=== PATIENT | male | born 1950 | race Caucasian/White ===

== ENCOUNTER → 2016-03-01 | Outpatient (CLI) | payer BC ==
[~2016-03-01] MED LIST: ACET-1256 PO; ACET0.054 PO; ASCO250T4; ASPI81TA28 PO; BENZ100C84 PO; BISA-16 PO; CALC500C70 PO; CHONCAP PO; CLR10 PO; CMD/25 PO; CYAN1SUB SC; DIPH25CA65 PO; DOCU-94 PO; DOXY100C76 PO; ENOX80IN SQ; FENT75DI2 TOP; FERR1TAB13 PO; FERR28TA2; FLUT0.15; FLUT0.15 NAE; FOLI1TAB7 PO; GADAVIST IV PRN; GLUC10007 PO; GUAISYP4 PO; LEVO1TAB33 PO; LISI-729 PO; LISI10TA PO; NAPR1TAB9 PO; NIVO4INJ IV; NMN10 PO; ONDA8TAB6 PO; OXYC-57 PO; OXYC1TAB3 PO; PANT40TA PO; PHYT100T; PRED10TA PO; PRENTAB26 PO; Prochlorperazine PO; WARF5TAB7 PO; XGVI IV; [UNRECOGNIZED DRUG - CODE] PO; zinc PO
--- NOTE | 2016-03-01 11:20 | DIAGNOSTIC IMAGING REPORT ---
MRI OF THE BRAIN WITHOUT AND WITH IV CONTRAST CLINICAL HISTORY: LUNG CA W/METS TO BRAIN AND BONE COMPARISON STUDY: 11/17/2015 TECHNIQUE: MRI of the brain was performed from the vertex to the skull base utilizing various T1 and T2 weighted sequences. Following the IV administration of 8 mL of Gadavist contrast, additional enhanced images were obtained. FINDINGS: Sagittal T1, axial diffusion, proton density and T2 weighted axial, coronal FLAIR, and pre and post axial T1-weighted images were acquired. These were supplemented with post gadolinium coronal T1 weighted images. The patient was imaged in a 0.7 Rosemarie open MRI magnet. There are postsurgical changes of a right parietal craniotomy. There is subjacent encephalomalacia. There is mild edema within the subjacent brain. There is no pathologic enhancement to indicate recurrent neoplasm. Axial diffusion-weighted images reveal no evidence of acute or subacute infarction. There is no evidence of ventricular dilatation. Proton density T2-weighted and FLAIR images reveal scattered foci of increased T2 signal within the white matter, likely on a small vessel basis. There is also right parietal edema subjacent to the craniotomy site. There are no abnormal flow voids. There is a nonspecific 7 mm focus of enhancement within the right cerebellar hemisphere. There is mild surrounding edema best visualized on the FLAIR sequence. A new metastatic deposit is the diagnosis of exclusion. IMPRESSION: 1. Postsurgical changes of a prior right parietal craniotomy. 2. New 7 mm focus of enhancement and surrounding edema in the right cerebellar hemisphere. A new metastatic deposit is the diagnosis of exclusion. Electronically signed by: Terrell Grey M.D. 03/01/2016 11:18 AM Dictated Date/Time: 03/01/2016 11:12 AM
== END | disposition home or self-care (01) ==
LOC: C.OPENMRI 09:50
PROVIDERS: ATTEND Radiology Radiation Oncology
DX: C34.90 Malignant neoplasm of unspecified part of unspecified bronchus or lung (principal)

== ENCOUNTER 2016-06-09 11:36 | Emergency (ER) | payer BC ==
[~2016-06-09] VITALS: Ht 170.2 cm; Wt 79.9 kg
[~2016-06-09 11:36] MED LIST changes: -ACET-1256 PO; -ACET0.054 PO; -ASCO250T4; -ASPI81TA28 PO; -BENZ100C84 PO; -CALC500C70 PO; -CLR10 PO; -CMD/25 PO; -CYAN1SUB SC; -DIPH25CA65 PO; -DOXY100C76 PO; -ENOX80IN SQ; -FERR1TAB13 PO; -FERR28TA2; -FLUT0.15; -FLUT0.15 NAE; -FOLI1TAB7 PO; -GUAISYP4 PO; -LEVO1TAB33 PO; -NIVO4INJ IV; -NMN10 PO; -OPTIRAY 320 IV PRN; -OXYC1TAB3 PO; -PHYT100T; -PRED10TA PO; -PRENTAB26 PO; -WARF5TAB7 PO; -XGVI IV; -[UNRECOGNIZED DRUG - CODE] PO
[2016-06-09 11:43] VITALS: TEMP 36.6; Ht 170.2 cm; Wt 79.9 kg
[2016-06-09 12:07] VITALS: O2SAT 98
--- NOTE | 2016-06-09 12:24 | EMERGENCY ROOM VISIT NOTE ---
History Report prepared by Kaitlin: Nichol Azul Under the Supervision of: Dr. Jesus Cabral M.D. First contact with patient: 12:13 Chief Complaint: RESPIRATORY PROBLEMS Stated Complaint: DX W/BLOOD CLOT IN LUNG Nursing Triage Summary: pt. has had recent right hip replacement, 05/18/16, brain CA 05/22/15 tumor removal, Chemo and radiation followed surgery, avastan every 3 weeks History of Present Illness The patient is a 65 year old male who presents to the Emergency Room with complaints of abnormal diagnostic testing that was done today prior to arrival. The patient notes that he has a history of lung cancer with metastases to the brain and bone. He notes that he had brain surgery and additionally had his bone repaired in his acetabulum repaired in April. The patient states that he had a routine CT scan today that revealed a blood clot. He additionally notes that he had blood work done as well. The patient states that his last chemotherapy treatment was in July 2015. He denies any fever or pain or swelling to his legs. Source of History: patient, spouse/significant other Onset: prior to arrival Position: other (global) Quality: other (abnormal diagnositic testing) Associated Symptoms: No fevers Review of Systems See HPI for pertinent positives & negatives. A total of 10 systems reviewed and were otherwise negative. Past Medical & Surgical Medical Problems: (1) Intracranial mass (2) Primary cancer of left upper lobe of lung Old medical records were reviewed. Nurse's notes were reviewed and I agree with. Family History FH: lung disease FHx: cancer Social History Smoking Status: Former Smoker Drug Use: none Marital Status: Housing Status: lives with family Occupation Status: retired Current/Historical Medications Scheduled Aspirin (Aspirin Ec), 81 MG PO DAILY Chondroitin Sulfate-Vitamin C- (Chondroitin Sulfate), 1,103 MG PO DAILY Diphenhydramine Hcl (Benadryl Allergy), 1 CAP PO HS Enoxaparin (Lovenox), 80 MG SQ Q12H Ferrous Sulfate (Kp Ferrous Sulfate), 1 TAB PO DAILY Glucosamine Sulfate (Glucosamine), 1,500 MG PO DAILY Lisinopril (Prinivil), 10 MG PO DAILY Pantoprazole (Protonix), 40 MG PO QPM Scheduled PRN Naproxen (Aleve), 220 MG PO Q12 PRN for Pain [zinc], 50 MG PO DAILY PRN for Nasal Congestion Miscellaneous Medications Acetaminophen (Tylenol), 80 MG PO Fluticasone Propionate (Nasal) (Flonase Allergy Relief) Allergies Coded Allergies: Penicillins (Verified Allergy, Mild, red flushed face, 06/09/16) Atorvastatin (Verified Adverse Reaction, Intermediate, joint pain, 06/09/16 ) Physical Exam Vital Signs Date Time Temp Pulse Resp B/P Pulse Ox O2 Delivery O2 Flow Rate FiO2 06/09/16 16:05 100 18 123/65 97 06/09/16 15:35 111 18 122/69 96 06/09/16 13:04 96 12 122/69 Room Air 06/09/16 12:27 101 06/09/16 12:07 99 Room Air 06/09/16 12:07 98 Room Air 06/09/16 11:43 36.6 98 20 126/76 98 Room Air Physical Exam General: Well developed well nourished, non-ill appearing middle aged male, in no acute distress, breathing comfortably on room air. Normal speech HEENT: Normal cephalic atraumatic. Pupils are equal round and reactive to light. Extraocular movements are intact. Sclerae anicteric. Oropharynx is pink with moist mucous membranes. No swelling of the mouth lips or tongue. Neck: Supple with a midline trachea. No meningeal signs or stiffness, no JVD or bruits. No Stridor. Chest wall: A port in left chest. Chest: Clear to auscultation bilaterally. No wheezes or rhonchi. No increased work of breathing. Heart: regular rate and rhythm. Abdomen: Soft nontender, nondistended without rebound guarding or rigidity. Extremities: No cyanosis clubbing or edema. No calf tenderness or assymetry Spine/Back. Non tender to palpation. No CVA tenderness Skin: Good turgor without rashes. Neurologic exam: Cranial nerves two through 12 are intact. Motor and sensation are intact and symmetrical throughout. Medical Decision & Procedures Laboratory Results 06/09/16 12:55 Red Blood Count 3.59, Mean Corpuscular Volume 91.9, Mean Corpuscular Hemoglobin 28.7, Mean Corpuscular Hemoglobin Concent 31.2, Mean Platelet Volume 7.9, Neutrophils (%) (Auto) 79.4, Lymphocytes (%) (Auto) 13.4, Monocytes (%) (Auto) 6.5, Eosinophils (%) (Auto) 0.4, Basophils (%) (Auto) 0.2, Neutrophils # (Auto) 7.97, Lymphocytes # (Auto) 1.35, Monocytes # (Auto) 0.65, Eosinophils # (Auto) 0.04, Basophils # (Auto) 0.02 06/09/16 12:55 Test 06/09/16 12:55 White Blood Count 10.04 K/uL (4.8-10.8) Red Blood Count 3.59 M/uL (4.7-6.1) Hemoglobin 10.3 g/dL (14.0-18.0) Hematocrit 33.0 % (42-52) Mean Corpuscular Volume 91.9 fL (80-100) Mean Corpuscular Hemoglobin 28.7 pg (25-34) Mean Corpuscular Hemoglobin Concent 31.2 g/dl (32-36) Platelet Count 385 K/uL (130-400) Mean Platelet Volume 7.9 fL (7.4-10.4) Neutrophils (%) (Auto) 79.4 % Lymphocytes (%) (Auto) 13.4 % Monocytes (%) (Auto) 6.5 % Eosinophils (%) (Auto) 0.4 % Basophils (%) (Auto) 0.2 % Neutrophils # (Auto) 7.97 K/uL (1.4-6.5) Lymphocytes # (Auto) 1.35 K/uL (1.2-3.4) Monocytes # (Auto) 0.65 K/uL (0.11-0.59) Eosinophils # (Auto) 0.04 K/uL (0-0.5) Basophils # (Auto) 0.02 K/uL (0-0.2) RDW Standard Deviation 52.4 fL (36.4-46.3) RDW Coefficient of Variation 15.6 % (11.5-14.5) Immature Granulocyte % (Auto) 0.1 % Immature Granulocyte # (Auto) 0.01 K/uL (0.00-0.02) Prothrombin Time 10.9 SECONDS (9.0-12.0) Prothromb Time International Ratio 1.0 (0.9-1.1) Activated Partial Thromboplast Time 33.6 SECONDS (21.0-31.0) Partial Thromboplastin Ratio 1.3 Anion Gap 7.0 mmol/L (3-11) Est Creatinine Clear Calc Drug Dose 126.9 ml/min Estimated GFR () 123.1 Estimated GFR (Non- 106.2 BUN/Creatinine Ratio 12.2 (10-20) Calcium Level 8.2 mg/dl (8.5-10.1) Total Bilirubin 0.3 mg/dl (0.2-1) Direct Bilirubin < 0.1 mg/dl (0-0.2) Aspartate Amino Transf (AST/SGOT) 14 U/L (15-37) Alanine Aminotransferase (ALT/SGPT) 25 U/L (12-78) Alkaline Phosphatase 79 U/L (45-117) Total Protein 6.7 gm/dl (6.4-8.2) Albumin 3.0 gm/dl (3.4-5.0) Lipase 325 U/L (73-393) Laboratory studies as stated above per my review. Medications Administered Medications (Trade) Dose Ordered Sig/Suzy Route Start Time Stop Time Status Last Admin Dose Admin Enoxaparin Sodium (Lovenox Inj) 80 mg NOW ONCE SQ 06/09/16 14:45 06/09/16 14:58 DC 06/09/16 15:57 80 MG Heparin Sodium (Porcine) (Heparin 100 Unit/ml 5ml Flush) 5 ml STK-MED ONCE .ROUTE 06/09/16 16:06 06/09/16 16:07 DC 06/09/16 16:00 5 ML ECG Indication: other (abnormal diagnositc testing) Rate (beats per minute): 92 Rhythm: normal sinus Findings: no acute ischemic change, no ectopy Comparison ECG Date: 05/21/15 Change: no significant change ED Course 1215: Past medical records reviewed. The patient was evaluated in room C2B, and a complete history and physical examination were performed. 1304: I discussed the patients case with Dr. Ray, Oncology. He feels that the patient should be evaluated for further treatment and started on Heparin. 1355: I discussed the patients case with SHANNON Dailey. He will evaluate the patient for further treatment. 1425: I discussed the patients case with SHANNON Dailey. He states that he spoke with Dr. Ray, oncology and they feel that the patient will be stable for discharge. 1445: Ordered Lovenox Inj 80 mg SQ. 1450: Ordered Lovenox 1 mg/Kg 1 ea SQ. 1454: I reevaluated the patient and he is resting comfortably. I discussed the treatment plan with him and he verbalized complete understanding and agreement. He is ready to go home. Medical Decision Differentials include, but are not limited to; PE, cancer related complication, infection, electrolyte or metabolic abnormality. This patient comes in as described above. He was sent over by his oncologist after having a CAT scan which showed a PE as an incidental finding. He was having a routine CAT scan for his cancer. He has no chest pain or shortness of breath. The CAT scan showed a right lower lobe PE, he also has progression of his cancer. He is asymptomatic and has no pain in his legs. His port was accessed and multiple blood testing was obtained. I did discuss with Dr. Casiano, who had recommended heparin. I then consulted Dr. Clements to see the patient for admission. Dr. Clements called and talked to Dr. Casiano they agreed that we will wanted to start him on Lovenox as an outpatient. The patient was happy with this as was his provider. He is given the first dose of Lovenox here and a prescription for Lovenox 80 mg twice a day he was set up to be seen by the anticoagulation clinic on Tuesday. He is to return if: Any problems given the medications, shortness of breath, fever or chills, any problems concerns. Patient and his were happy with plan and he was discharged to home. Consults Time Called: 1300 Consulting Physician: Dr. Ray, Oncology Returned Call: 1304 I discussed the patients case with Dr. Ray, Oncology. He feels that the patient should be evaluated for further treatment and started on Heparin. Additional Consults: Time Called: 1353 Consulted Physician: SHANNON Dailey Returned Call: [phone] Additional Comments: I discussed the patients case with SHANNON Dailey. He will evaluate the patient for further treatment. Impression Primary Impression: Pulmonary embolism Additional Impression: Lung cancer Scribe Attestation The scribe's documentation has been prepared under my direction and personally reviewed by me in its entirety. I confirm that the note above accurately reflects all work, treatment, procedures, and medical decision making performed by me. Departure Information Dispostion Home / Self-Care Prescriptions Enoxaparin (Lovenox) 80 Mg/0.8 Ml Inj 80 MG SQ Q12H for 30 Days, #60 SYR Prov: Jesus Cabral M.D. 06/09/16 Referrals Lars Dawkins MD (PCP) Forms HOME CARE DOCUMENTATION FORM, IMPORTANT VISIT INFORMATION, WORK / SCHOOL INSTRUCTIONS Patient Instructions My [facility] [employer] Additional Instructions Rest. Drink plenty of fluids. Follow-up with the coag clinic doctor Jaswinder this week Use Lovenox 80 mg twice a day for 30 days Return if: Worsening of symptoms, shortness of breath, any new problems or concerns Problem Qualifiers
[2016-06-09 13:28] LABS: BASO % 0.2 %; BASO ABS # 0.02 K/uL (0-0.2); COMPLETE YES; EOS % 0.4 %; IG% 0.1 %; LYMPH % 13.4 %; LYMPH ABS # 1.35 K/uL (1.2-3.4); MEAN CELL VOLUME 91.9 fL (80-100); MEAN CORPUSCULAR HEMOGLOBIN 28.7 pg (25-34); MEAN CORPUSCULAR HGB CONC 31.2 g/dl (32-36); MEAN PLATELET VOLUME 7.9 fL (7.4-10.4); MONO % 6.5 %; NEUT % 79.4 %; PLATELET COUNT 385 K/uL (130-400); RED BLOOD COUNT 3.59 M/uL (4.7-6.1); WHITE BLOOD COUNT 10.04 K/uL (4.8-10.8)
[2016-06-09] MEDS ORDERED: FLUT0.15 (13:28)
[2016-06-09] MEDS ORDERED: DIPH25CA65 PO (13:28)
[2016-06-09] MEDS ORDERED: ACET0.054 PO (13:28)
[2016-06-09] MEDS ORDERED: ASPI81TA28 PO (13:28)
[2016-06-09] MEDS ORDERED: FERR1TAB13 PO (13:28)
[2016-06-09 13:54] LABS: PARTIAL THROMBOPLASTIN RATIO 1.3; PROTHROMBIN TIME (PATIENT) 10.9 SECONDS (9.0-12.0)
[2016-06-09 14:03] LABS: BLOOD UREA NITROGEN 7 mg/dl (7-18); BUN/CREATININE RATIO 12.2 (10-20); CALCIUM 8.2 mg/dl (8.5-10.1); CARBON DIOXIDE 25 mmol/L (21-32); CHLORIDE 107 mmol/L (98-107); CREATININE 0.58 mg/dl (0.60-1.40); GLUCOSE 101 mg/dl (70-99); POTASSIUM 3.6 mmol/L (3.5-5.1); SODIUM 139 mmol/L (136-145)
[2016-06-09 14:06] LABS: ALKALINE PHOSPHATASE 79 U/L (45-117); ALT/SGPT 25 U/L (12-78); AST/SGOT 14 U/L (15-37)
[2016-06-09] MEDS ORDERED: HEPARIN 25,000 UNIT/500ML D5W 500 ML IV PRN (14:30)
[2016-06-09] MEDS ORDERED: HEPARIN IV BOLUS 6,000 UNIT in SYRINGE 0 ML IV ONE (14:45)
[2016-06-09] MEDS ORDERED: ENOXAPARIN 80 MG/0.8 ML SYR SQ ONE (14:45)
[2016-06-09] MEDS ORDERED: ENOXAPARIN 1 MG/KG SQ STA (14:50)
[2016-06-09] MEDS ORDERED: ENOX80IN SQ (14:54)
--- NOTE | 2016-06-09 15:25 | Medical Consult ---
Consultation Date of Consultation: Jun 09, 2016. Attending Physician: Dr. Cabral Reason for Consultation: Pulmonary embolism History of Present Illness 65 yo male with history of metastatic lung cancer with locally advanced disease as well as a history of brain mets and mets to the right acetabulum. He had a routine follow up CT chest done this morning and then he and his went shopping. He has been feeling well, no shortness of breath, no chest pain, no weight loss, no fatigue. He has been recovering from right hip replacement 3 weeks ago and has been doing quite well. No pain or swelling in either of his legs, denies calf pain. The CT chest showed progression of the left lung mass but also incidentally showed a right lower lobe segmental pulmonary embolus. He was called by oncology and told to come to the ED for evaluation. In the ED he was not hypoxic and blood pressure was preserved. He was slightly tachycardic with HR 100-110's while at rest. 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, s/p craniotomy for diagnosis and then radiation mets to right acetabulum, s/p removal of mets and total hip arthroplasty three weeks ago HTN GERD Seasonal allergies Family History FH: lung disease FHx: cancer Social History Smoking Status: Former Smoker Drug Use: none Marital Status: Housing Status: lives with family Occupation Status: retired Allergies Coded Allergies: Penicillins (Verified Allergy, Mild, red flushed face, 06/09/16) Atorvastatin (Verified Adverse Reaction, Intermediate, joint pain, 06/09/16 ) Home Medications Aspirin 81mg daily Protonix 40mg daily Lisinopril 20mg daily Benadryl PRN allergies Current Inpatient Medications Current Inpatient Medications Medications (Trade) Dose Ordered Sig/Suzy Route Start Time Stop Time Status Last Admin Dose Admin Heparin Sodium/ Dextrose (Heparin 25,000 Unit/500ml D5W) 500 ml @ 26 mls/hr [id number] PRN IV 06/09/16 14:30 07/09/16 14:29 Review of Systems Constitutional: No chills, No fatigue, No fever, No problem reported, No sweats , No weakness, No weight loss Eyes: No diplopia, No discharge, No eye pain, No problem reported, No redness, No worsening of vision ENT: No dental problems, No hearing loss, No nasal symptoms, No problem reported, No sore throat, No tinnitus, No trouble swallowing, No unusual epistaxis Respiratory: No cough, No dyspnea at rest, No dyspnea on exertion, No hemoptysis, No problem reported, No shortness of breath, No sputum, No wheezing Cardiovascular: No PND, No chest pain, No claudication, No edema, No orthopnea , No palpitations, No problem reported Abdomen: No GI bleeding, No constipation, No diarrhea, No nausea, No pain, No problem reported, No vomiting Musculoskeletal: No calf pain, No joint pain, No muscle pain, No problem reported, No swelling Genitourinary - Male: No dysuria, No hematuria, No urinary frequency, No urinary urgency Neurologic: No balance problems, No memory loss, No numbness/tingling, No paralysis, No problem reported, No vertigo, No weakness Psychiatric: No anhedonism, No anxiety, No depression symptoms, No insomnia, No problem reported, No substance abuse Endocrine: No excessive thirst, No excessive urination, No fatigue, No problem reported Hematologic / Lymphatic: No abnormal bleeding/bruising, No clotting problems, No night sweats, No problem reported, No swollen lymph nodes Integumentary: No bleeding, No color change, No itch, No new/changing skin lesions, No problem reported, No rash Allergic / Immunologic: No environmental allergies, No food allergies, No frequent infections, No hives, No pet sensitivities, No poor healing, No problem reported, No prolonged convalescence, No seasonal allergies Physical Exam Date Time Temp Pulse Resp B/P Pulse Ox O2 Delivery O2 Flow Rate FiO2 06/09/16 13:04 96 12 122/69 Room Air 06/09/16 12:27 101 06/09/16 12:07 99 Room Air 06/09/16 12:07 98 Room Air 06/09/16 11:43 36.6 98 20 126/76 98 Room Air General Appearance: WD/WN, no apparent distress Head: normocephalic, atraumatic Eyes: normal inspection, PERRL, EOMI, sclerae normal ENT: hearing grossly normal, pharynx normal, + nasal congestion, + nasal drainage Neck: supple, no adenopathy, no JVD Respiratory/Chest: chest non-tender, lungs clear, normal breath sounds, no respiratory distress, no accessory muscle use Cardiovascular: regular rate, rhythm, no edema, no gallop, no JVD, no murmur, normal peripheral pulses Abdomen/GI: normal bowel sounds, non tender, soft, no organomegaly Back: normal inspection, no CVA tenderness, no muscle spasm, normal range of motion Extremities/Musculoskelatal: normal inspection, no calf tenderness, normal capillary refill, no pedal edema, normal range of motion, pelvis stable Neurologic/Psych: sight mounter II-XII nml as tested, no motor/sensory deficits, alert, normal mood/affect, normal reflexes, oriented x 3 Skin: normal color, warm/dry, no rash Lymphatic: no adenopathy Laboratory Results CHEST CT WITH CONTRAST CT DOSE: 406.13 mGycm HISTORY: Lung cancer. Follow-up. TECHNIQUE: Multiaxial CT images of the chest were performed following the intravenous administration of contrast. COMPARISON: Chest CT 12/30/2015. FINDINGS: Significant increase in size in the 7.1 x 5.5 cm lobular lingular mass. This previously measured 4.5 x 2.3 cm. This results in high-grade stenosis of the lingular bronchus. This partially encases the left superior pulmonary vein with severe stenosis of its branches. There is mild narrowing of the lingular pulmonary artery due to the mass. Right lower lobe segmental pulmonary embolus. No pleural or pericardial effusions. AP window and prevascular lymph nodes have increased in size consistent with metastatic disease. Dominant AP window lymph node measures 13 mm. There are a few new lesions within the liver with the largest in the right hepatic lobe measuring 3.8 cm. These are consistent with metastatic disease. Bilateral adrenal gland nodules are again noted. No suspicious lytic or blastic osseous lesions. Left Port-A-Cath. This terminates in the distal SVC. Minimal emphysema. No pneumothorax. Stable 9 mm groundglass nodule within the right upper lobe on image 80. However, there is been interval development of multiple bilateral pulmonary nodules consistent with metastatic disease. There are at least 10 pulmonary nodules identified. Dominant nodule seen within the lingula measures 12 mm. IMPRESSION: 1. Significant increase in size in the lobular 7.1 x 5.5 cm lingular mass. 2. Interval development of multiple pulmonary metastatic nodules and hepatic metastatic disease as described above. 3. Mildly enlarged AP window and prevascular lymph nodes consistent with metastatic disease. 4. Right lower lobe segmental pulmonary embolus. 5. These findings were called/faxed to the patient's referring physician. Last 24 Hours Test 06/09/16 12:55 White Blood Count 10.04 K/uL Red Blood Count 3.59 M/uL Hemoglobin 10.3 g/dL Hematocrit 33.0 % Mean Corpuscular Volume 91.9 fL Mean Corpuscular Hemoglobin 28.7 pg Mean Corpuscular Hemoglobin Concent 31.2 g/dl Platelet Count 385 K/uL Mean Platelet Volume 7.9 fL Neutrophils (%) (Auto) 79.4 % Lymphocytes (%) (Auto) 13.4 % Monocytes (%) (Auto) 6.5 % Eosinophils (%) (Auto) 0.4 % Basophils (%) (Auto) 0.2 % Neutrophils # (Auto) 7.97 K/uL Lymphocytes # (Auto) 1.35 K/uL Monocytes # (Auto) 0.65 K/uL Eosinophils # (Auto) 0.04 K/uL Basophils # (Auto) 0.02 K/uL RDW Standard Deviation 52.4 fL RDW Coefficient of Variation 15.6 % Immature Granulocyte % (Auto) 0.1 % Immature Granulocyte # (Auto) 0.01 K/uL Prothrombin Time 10.9 SECONDS Prothromb Time International Ratio 1.0 Activated Partial Thromboplast Time 33.6 SECONDS Partial Thromboplastin Ratio 1.3 Sodium Level 139 mmol/L Potassium Level 3.6 mmol/L Chloride Level 107 mmol/L Carbon Dioxide Level 25 mmol/L Anion Gap 7.0 mmol/L Blood Urea Nitrogen 7 mg/dl Creatinine 0.58 mg/dl Est Creatinine Clear Calc Drug Dose 126.9 ml/min Estimated GFR () 123.1 Estimated GFR (Non- 106.2 BUN/Creatinine Ratio 12.2 Random Glucose 101 mg/dl Calcium Level 8.2 mg/dl Total Bilirubin 0.3 mg/dl Direct Bilirubin < 0.1 mg/dl Aspartate Amino Transf (AST/SGOT) 14 U/L Alanine Aminotransferase (ALT/SGPT) 25 U/L Alkaline Phosphatase 79 U/L Total Protein 6.7 gm/dl Albumin 3.0 gm/dl Lipase 325 U/L Assessment & Plan 65 yo male with metastatic adenocarcinoma of left lung, here with incidental finding of right lower lobe pulmonary embolism seen on follow up CT chest - Pulmonary embolism: right lower lobe, slightly tachycardic but BP preserved and no hypoxia no chest pain, denies any dyspnea recommend Lovenox 80mg q12, will give a dose in the ED discussed plan with Dr. Oquendo, he is in agreement referred to Dr. San with coagulation clinic, appointment on Wednesday 06/14 - Metastatic adenocarcinoma: discussed results of CT, patient aware that left lung mass getting larger has follow up with Dr. Oquendo and will discuss plan of treatment - Seasonal allergies: worse this year, recommended Zyrtec due to non-drowsy and steroid nasal spray follow up with PCP Additional Copies To Alessandro Oquendo D.O.; Sofi San M.D., PHD; Joel Robin M.D.
[2016-06-09 16:05] VITALS: BP 123/65; PULSE 100; O2SAT 97
[2016-06-17] MEDS ORDERED: FERR28TA2 (13:06)
[2016-06-17] MEDS ORDERED: FOLI1TAB7 PO (13:06)
[2016-06-17] MEDS ORDERED: ASCO250T4 (13:06)
[2016-06-17] MEDS ORDERED: PRENTAB26 PO (13:06)
[2016-06-17] MEDS ORDERED: WARF5TAB7 PO (13:06)
[2016-06-21] MEDS ORDERED: PANT40TA PO (13:35)
[2016-06-21] MEDS ORDERED: FLUT0.15 NAE (15:15)
[2016-06-21] MEDS ORDERED: ACET-1256 PO (15:15)
[2016-06-24] MEDS ORDERED: DOXY100C76 PO (09:07)
[2016-06-29] MEDS ORDERED: NMN10 PO (16:28)
[2016-07-01] MEDS ORDERED: WARF5TAB7 PO (11:17)
[2016-07-01] MEDS ORDERED: BENZ100C84 PO (11:18)
[2016-07-05] MEDS ORDERED: CLR10 PO (15:49)
[2016-07-08] MEDS ORDERED: GUAISYP4 PO (15:52)
[2016-07-22] MEDS ORDERED: XGVI IV (12:39)
[2016-07-22] MEDS ORDERED: NIVO4INJ IV (12:39)
[2016-07-22] MEDS ORDERED: CALC500C70 PO (12:39)
[2016-07-29] MEDS ORDERED: CMD/25 PO (13:37)
[2016-08-19] MEDS ORDERED: NAPR1TAB9 PO (13:29)
[2016-08-26] MEDS ORDERED: WARF5TAB7 PO (11:40)
[2016-09-10] MEDS ORDERED: LEVO1TAB33 PO (11:41)
[2016-09-10] MEDS ORDERED: PRED10TA PO (11:41)
[2016-10-04] MEDS ORDERED: CYAN1SUB SC (12:13)
[2016-10-05] MEDS ORDERED: OXYC1TAB3 PO (08:40)
[2016-10-05] MEDS ORDERED: [UNRECOGNIZED DRUG - CODE] PO (16:37)
[2016-10-07] MEDS ORDERED: PHYT100T (11:59)
== END 2016-06-09 16:09 | disposition home or self-care (01) ==
LOC: C.EDC 12:36
DX: I26.99 Other pulmonary embolism without acute cor pulmonale (principal); C34.12 Malignant neoplasm of upper lobe, left bronchus or lung; Z87.891 Personal history of nicotine dependence; Z79.82 Long term (current) use of aspirin; Z79.899 Other long term (current) drug therapy; Z88.0 Allergy status to penicillin; Z88.8 Allergy status to other drugs, medicaments and biological substances; Z80.9 Family history of malignant neoplasm, unspecified; C78.00 Secondary malignant neoplasm of unspecified lung; C78.7 Secondary malignant neoplasm of liver and intrahepatic bile duct

== ENCOUNTER → 2016-06-09 | Outpatient (CLI) | payer BC ==
[~2016-06-09] MED LIST changes: -BISA-16 PO; -GADAVIST IV PRN; -LISI-729 PO; +OPTIRAY 320 IV PRN
--- NOTE | 2016-06-09 10:28 | DIAGNOSTIC IMAGING REPORT ---
CHEST CT WITH CONTRAST CT DOSE: 406.13 mGycm HISTORY: Lung cancer. Follow-up. TECHNIQUE: Multiaxial CT images of the chest were performed following the intravenous administration of contrast. COMPARISON: Chest CT 12/30/2015. FINDINGS: Significant increase in size in the 7.1 x 5.5 cm lobular lingular mass. This previously measured 4.5 x 2.3 cm. This results in high-grade stenosis of the lingular bronchus. This partially encases the left superior pulmonary vein with severe stenosis of its branches. There is mild narrowing of the lingular pulmonary artery due to the mass. Right lower lobe segmental pulmonary embolus. No pleural or pericardial effusions. AP window and prevascular lymph nodes have increased in size consistent with metastatic disease. Dominant AP window lymph node measures 13 mm. There are a few new lesions within the liver with the largest in the right hepatic lobe measuring 3.8 cm. These are consistent with metastatic disease. Bilateral adrenal gland nodules are again noted. No suspicious lytic or blastic osseous lesions. Left Port-A-Cath. This terminates in the distal SVC. Minimal emphysema. No pneumothorax. Stable 9 mm groundglass nodule within the right upper lobe on image 80. However, there is been interval development of multiple bilateral pulmonary nodules consistent with metastatic disease. There are at least 10 pulmonary nodules identified. Dominant nodule seen within the lingula measures 12 mm. IMPRESSION: 1. Significant increase in size in the lobular 7.1 x 5.5 cm lingular mass. 2. Interval development of multiple pulmonary metastatic nodules and hepatic metastatic disease as described above. 3. Mildly enlarged AP window and prevascular lymph nodes consistent with metastatic disease. 4. Right lower lobe segmental pulmonary embolus. 5. These findings were called/faxed to the patient's referring physician. Electronically signed by: Sina Ruiz M.D. 06/09/2016 10:26 AM Dictated Date/Time: 06/09/2016 10:14 AM
== END | disposition home or self-care (01) ==
LOC: C.CTS 09:15
PROVIDERS: ATTEND Internal Medicine Hematology & Oncology
DX: C34.12 Malignant neoplasm of upper lobe, left bronchus or lung (principal); C78.00 Secondary malignant neoplasm of unspecified lung; C78.7 Secondary malignant neoplasm of liver and intrahepatic bile duct; I26.99 Other pulmonary embolism without acute cor pulmonale

== ENCOUNTER → 2016-06-16 | Outpatient (CLI) | payer BC ==
[~2016-06-16] MED LIST changes: +ACET-1256 PO; +ACET0.054 PO; +ASCO250T4; +BENZ100C84 PO; +CALC500C70 PO; -CHONCAP PO; +CLR10 PO; +CMD/25 PO; +CYAN1SUB SC; +DIPH25CA65 PO; -DOCU-94 PO; +DOXY100C76 PO; +ENOX80IN SQ; -FENT75DI2 TOP; +FERR1TAB13 PO; +FERR28TA2; +FLUT0.15; +FLUT0.15 NAE; +FOLI1TAB7 PO; +GADAVIST IV PRN; -GLUC10007 PO; +GUAISYP4 PO; +LEVO1TAB33 PO; +NIVO4INJ IV; +NMN10 PO; -ONDA8TAB6 PO; -OXYC-57 PO; +OXYC1TAB3 PO; +PHYT100T; +PRED10TA PO; +PRENTAB26 PO; -Prochlorperazine PO; +WARF5TAB7 PO; +XGVI IV; +[UNRECOGNIZED DRUG - CODE] PO
--- NOTE | 2016-06-16 12:22 | DIAGNOSTIC IMAGING REPORT ---
MRI OF THE BRAIN WITHOUT AND WITH IV CONTRAST CLINICAL HISTORY: Metastatic lung carcinoma. COMPARISON STUDY: 03/01/2016 TECHNIQUE: MRI of the brain was performed from the vertex to the skull base utilizing various T1 and T2 weighted sequences. Following the IV administration of 7.5 mL of Gadavist contrast, additional enhanced images were obtained. FINDINGS: Sagittal T1, axial diffusion, proton density and T2 weighted axial, coronal FLAIR, and pre and post axial T1-weighted images were acquired. These were supplemented with post gadolinium coronal T1 weighted images. The patient was imaged before and after administration of 7.5 cc of intravenous Gadavist. The patient was imaged under 0.7 Rosemarie open MRI scanner. There are postsurgical changes of a right parietal craniotomy. Axial diffusion-weighted images reveal no evidence of acute or subacute infarction. There is no evidence of ventricular dilatation. Proton density T2-weighted and FLAIR images reveal foci of edema subjacent to the craniotomy site, likely postsurgical. There are additional foci of white matter edema likely secondary to metastatic foci. There are no abnormal flow voids. Postcontrast images reveal a new 5 mm enhancing focus within the right temporal lobe. The previously identified focus of enhancement within the right cerebellar hemisphere appears smaller. There is a second enhancing lesion within the right temporal lobe measuring 9.5 mm. There is a 4 mm enhancing lesion within the right posterior temporal lobe. There is a new 5 mm enhancing nodule within the right basal ganglia. There is a new 9 mm enhancing lesion within the left frontal lobe. There is a new 4 mm enhancing lesion within the left centrum semiovale. IMPRESSION: Interval development of multiple enhancing parenchymal lesions, many of which demonstrate mild surrounding edema. Given the clinical history, the findings are viewed as most consistent with multifocal intracranial metastasis. Electronically signed by: Terrell Grey M.D. 06/16/2016 12:20 PM Dictated Date/Time: 06/16/2016 12:13 PM
== END | disposition home or self-care (01) ==
LOC: C.OPENMRI 10:40
PROVIDERS: ATTEND Physician Assistant Medical
DX: C34.12 Malignant neoplasm of upper lobe, left bronchus or lung (principal); C79.31 Secondary malignant neoplasm of brain; C79.51 Secondary malignant neoplasm of bone

== ENCOUNTER → 2016-08-19 | Outpatient (CLI) | payer BC ==
[~2016-08-19] MED LIST changes: -ACET0.054 PO; -BENZ100C84 PO; -CLR10 PO; -CMD/25 PO; -DOXY100C76 PO; -ENOX80IN SQ; -FERR1TAB13 PO; -FLUT0.15; -FLUT0.15 NAE; -GADAVIST IV PRN; -GUAISYP4 PO; -LISI10TA PO; -zinc PO
[2016-08-19 12:54] VITALS: BP 105/64; PULSE 104; TEMP 37.1; O2SAT 97
--- NOTE | 2016-08-19 15:55 | Radiation Oncology Follow-Up ---
Radiation Oncology Follow-Up Date of Visit Aug 19, 2016. (Shadia Allison PA-C) Reason For Visit One-month follow-up (Shadia Allison PA-C) Radiation Completion Date Right hip 06/25/15;Brain 07/09/15, 03/17/16, & 07/13/16. (Shadia Allison PA-C) Diagnosis (1) Primary cancer of left upper lobe of lung Status: Chronic Onset Date: 05/22/2015 Stage: IV Permanent Comment: STAGING: Metastatic lung cancer to the brain Left leg weakness then right upper extremity weakness Finding of a left upper lobe mass of the lung Finding of a right parietal mass of the brain Status post craniotomy with finding of metastatic adenocarcinoma lung primary Status post rehabilitation with excellent recovery of weakness Status post PET/CT revealing primary as well as right acetabular metastasis Status post completion of radiation therapy to the right hip 06/25/2015 received 2500 cGy Status post completion of radiation therapy to the brain 07/09/2015 received 3000 cGy in 5 fractions (SBRT) Maintenance Avastin New right cerebellar lesion seen on MRI 03/11/2016 Status post completion of radiation therapy to the right cerebellar with stereotactic treatment 03/17/2016 received 1800 cGy as a single fraction Avastin was held in order for him to undergo a right total hip replacement 05/18 Finding of multiple new brain metastasis 06/16/2016 Status post completion of whole brain radiation therapy 07/13/2016 he received 3750 cGy Last Edited By: Shadia Allison on Jul 28, 2016 10:14 (Shadia Allison PA-C) History of Present Illness Mr. Rehman is a 65-year-old gentleman who recently presented with left leg weakness which started several weeks ago. He did see his primary care physician , Dr. Burrell, who recommended imaging studies. He initially underwent a lumbar x-ray which was completed on 05/13/2015 which showed no evidence of pathology. In the interim, he started to develop left upper extremity weakness as well. He did have an MRI of the lumbar spine completed on 05/19/2015 which showed: "IMPRESSION: 1. Multilevel degenerative vertebral this changes with posterior disc herniations and multilevel multifactorial spinal stenosis. 2. Left lateral bulging disc L4-L5 with mild narrowing of the spinal canal. 3. Left central disc herniation L3-L4 with moderate impact left anterior thecal sac and narrowing left neural foramina 4. Broad-based disc herniation L2-L3." He then had an MRI of the brain which was completed on 05/21/2015 which showed "Intensely enhancing 16 mm mass within the right parietal vertex with extensive surrounding vasogenic edema." The patient then was admitted to [facility] for further workup and evaluation. Dr. Hurley from neurosurgery evaluated the patient. They did obtain a chest x-ray on 05/21/2015 which did show a left upper lobe mass as well. Based on his neurologic symptoms and no previous history of cancer, Dr. Hurley recommended a right partial craniotomy to relieve the mass effect and also obtain a pathologic diagnosis. He did undergo a partial craniotomy by Dr. Alessandro Hurley on 05/22/2015 and attempted to perform a gross total resection of the mass. The pathology is pending. In the interim, the patient did have a CT chest abdomen pelvis on 05/23/2015 which did reveal a left perihilar mass measuring up to 6 cm with anterior displacement of the left main pulmonary artery. There are also noted to be several left hilar lymph nodes measuring up to 2.2 cm. An additional nodular process involving the left upper lobe measured 8.[address] abdomen and pelvis showed: "1. A 6 cm partially visualized necrotic mass primarily within the left upper lobe with associated left hilar lymphadenopathy. This is better appreciated on the same day chest CT. 2. A 2.2 cm left adrenal gland nodule. This is technically indeterminate but suspicious for a metastatic lesion given the left lung mass. 3. Mild bladder wall thickening. This likely due to chronic outlet obstruction from the enlarged prostate gland." Dr. Jovel has seen this patient in consultation regarding medical oncology input. We are now seeing the patient in consultation discuss the role of radiation therapy. The patient underwent a craniotomy in 05/22/2015. This did reveal metastatic adenocarcinoma of the lung primary. Following his hospitalization he went to [facility] for rehabilitation. The left-sided weakness resolved without difficulty. He is on a tapered dose of Decadron. He underwent a PET/CT for staging 06/04/2015. This revealed the mass of the left upper lobe with extension to the hilum. There is also activity in the right acetabulum. He was been seen by medical oncology. Chemotherapy is scheduled for 07/03/2015. He is going to have a port placed by Dr. Whitmore. He does have pain in the right hip with ambulation. He rates this at a level IV. This can get down to level I with taking Tylenol. He is been doing stretching exercises. Patient went under sequential treatment. First therapy was given to the right hip. He was treated from 06/19/2015 to 06/26/2015. He received 2500 cGy. He then was given treatment to the brain. He was treated from 06/30/2015 to 2015. He received 3000 cGy in 5 fractions utilizing SBRT. In the interim, the patient has been receiving maintenance chemotherapy underneath the supervision of Dr. Alessandro Oquendo. He is been receiving Avastin every 3 weeks. He has had no complaints including any neurologic deficits or headaches. He did have a follow-up MRI of the brain on 03/01/2016 which did reveal: "IMPRESSION: 1. Postsurgical changes of a prior right parietal craniotomy. 2. New 7 mm focus of enhancement and surrounding edema in the right cerebellar hemisphere. A new metastatic deposit is the diagnosis of exclusion." We have asked the patient to come in for a follow-up evaluation discussed the role further radiation therapy due to his new metastatic disease in the brain. Treatment was given as a single fraction on 03/17/2016. He received 1800 cGy. 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 He underwent a total hip replacement 05/18/2016. The Avastin he had been on as a maintenance dose was stopped prior to the hip surgery. He has been doing well and denies any headaches. He's had no change in vision. There is no change of the strength of his arms or legs. He also had follow-up studies ordered through Dr. Oquendo's office. He stated there is progression in the chest. There are plans for him to restart chemotherapy. He has an appointment to be seen in medical oncology next Tuesday. More recently, we did have a repeat MRI of the brain which did reveal metastatic disease with at least 5 metastatic deposits. Given the extent of disease, we have recommended palliative whole brain radiation therapy in 15 treatments due to his previous treatment. We have also recommended consideration for namenda with treatment. I have already spoken with Dr. Alessandro Oquendo from medical oncology who will plan to restart the patient with systemic chemotherapy after completion of whole brain radiation therapy. Status post completion of whole brain radiation therapy 07/13/2016. He received 3750 cGy. (Shadia Allison PA-C) Interim History He continues to have the fatigue following treatment. He requires a nap twice a day. He is not having problems with headaches or dizziness. He has noticed decreased hearing since the end of treatment. He did have skin irritation especially of his years. The areas of dryness has steadily improved. He is following with the anticoagulation clinic in regards to the pulmonary embolism. He is now Opdivoo. This is given every 2 weeks. He is on Namenda to help with cognitive abilities. He does have loss of interest in usual activities. It had been recommended that he be on the medication for 6 months. His is going to check his prescription to see how long he is been on the medication. (Shadia Allison PA-C) Allergies Coded Allergies: Penicillins (Verified Allergy, Mild, red flushed face, 06/09/16) Atorvastatin (Verified Adverse Reaction, Intermediate, joint pain, 06/09/16 ) Home Medications Scheduled Ascorbic Acid (Vitamin C), DAILY Calcium/Vitamin D (Os-Shadi 500 Plus D), 1 TAB PO DAILY Denosumab (Xgeva), 1 DOSE IV UD Ferrous Sulfate (Iron), 65 MG DAILY Folic Acid (Folvite), 1 TAB PO DAILY Memantine (Namenda), 5 MG PO BID Multivit/Min/Iron/Fol Ac/Pren ( Vitamin), 1 TAB PO DAILY Nivolumab (Opdivo), Unknown Dose IV UD Warfarin Sod (Jantoven), 2.5 MG PO DAILY Scheduled PRN Acetaminophen (Tylenol), 1-2 TAB PO Q6 PRN for Pain Diphenhydramine Hcl (Benadryl Allergy), 1 CAP PO HS PRN for Sleep Naproxen (Aleve), 220 MG PO BID PRN for Pain Review of Systems Gastrointestinal: Symptoms: WNL Oral: Symptoms: No Problems Respiratory: Symptoms: Dry Cough, Moist Cough, Productive Cough Other Respiratory: Troubled with chronic cough that he's getting evaluated in August 2016 Urinary: Symptoms: Frequency Comments: Increasing with his age per pt Skin: Symptoms: No Problems Other Skin Symptoms: Forehead/ears/face with rush color; (Shadia Allison PA-C) Physical Exam Vital Signs Date Time Temp Pulse Resp B/P (MAP) Pulse Ox O2 Delivery O2 Flow Rate FiO2 08/19/16 12:54 37.1 104 20 105/64 97 Fatigue: None General Appearance: no apparent distress Eyes: normal inspection, EOMI ENT: normal ENT inspection, hearing grossly normal, TMs normal (small amount of dried cerumen in the auditory canal. There is no swelling or obstruction.) Neck: no adenopathy, thyroid normal Respiratory/Chest: no respiratory distress, no accessory muscle use, + decreased breath sounds Cardiovascular: regular rate, rhythm, no gallop, no murmur Abdomen: normal bowel sounds, soft Extremities: no pedal edema Neurologic/Psychiatric: no motor/sensory deficits, alert, normal mood/affect Skin: warm/dry, + pertinent finding (dryness of the skin and resolving hyperpigmentation of the scalp and ears.) (Shadia Allison PA-C) Laboratory Studies Test 06/09/16 12:55 06/23/16 15:40 08/03/16 13:17 08/12/16 11:45 Prothrombin Time 10.9 SECONDS (9.0-12.0) Prothrombin Time INR 1.0 (0.9-1.1) PTT 33.6 SECONDS (21.0-31.0) Partial Thromboplastin Ratio 1.3 Direct Bilirubin < 0.1 mg/dl (0-0.2) Lipase 325 U/L (73-393) Urine Color DK YELLOW Urine Appearance CLEAR (CLEAR) Urine pH 6.0 (4.5-7.5) Urine Specific [place] 1.024 (1.000-1.030) Urine Protein NEG (NEG) Urine Glucose (UA) NEG (NEG) Urine Ketones TRACE (NEG) Urine Occult Blood 2+ (NEG) Urine Nitrite NEG (NEG) Urine Bilirubin NEG (NEG) Urine Urobilinogen NEG (NEG) Urine Leukocyte Esterase NEG (NEG) Urine WBC (Auto) 1-5 /hpf (0-5) Urine RBC (Auto) 10-30 /hpf (0-4) Urine Hyaline Casts (Auto) 1-5 /lpf (0-5) Urine Epithelial Cells (Auto) 10-20 /lpf (0-5) Urine Bacteria (Auto) NEG (NEG) Lactate Dehydrogenase 230 U/L (87-241) White Blood Count 10.09 K/uL (4.8-10.8) Red Blood Count 4.07 M/uL (4.7-6.1) Hemoglobin 10.6 g/dL (14.0-18.0) Hematocrit 34.0 % (42-52) Mean Corpuscular Volume 83.5 fL (80-100) Mean Corpuscular Hemoglobin 26.0 pg (25-34) Mean Corpuscular Hemoglobin Concent 31.2 g/dl (32-36) Platelet Count 436 K/uL (130-400) Mean Platelet Volume 7.9 fL (7.4-10.4) Neutrophils (%) (Auto) 81.5 % Lymphocytes (%) (Auto) 11.2 % Monocytes (%) (Auto) 6.4 % Eosinophils (%) (Auto) 0.4 % Basophils (%) (Auto) 0.3 % Neutrophils # (Auto) 8.22 K/uL (1.4-6.5) Lymphocytes # (Auto) 1.13 K/uL (1.2-3.4) Monocytes # (Auto) 0.65 K/uL (0.11-0.59) Eosinophils # (Auto) 0.04 K/uL (0-0.5) Basophils # (Auto) 0.03 K/uL (0-0.2) RDW Standard Deviation 50.4 fL (36.4-46.3) RDW Coefficient of Variation 16.6 % (11.5-14.5) Immature Granulocyte % (Auto) 0.2 % Immature Granulocyte # (Auto) 0.02 K/uL (0.00-0.02) Sodium Level 134 mmol/L (136-145) Potassium Level 3.7 mmol/L (3.5-5.1) Chloride Level 98 mmol/L (98-107) Carbon Dioxide Level 24 mmol/L (21-32) Anion Gap 12.0 mmol/L (3-11) Blood Urea Nitrogen 10 mg/dl (7-18) Creatinine 0.71 mg/dl (0.60-1.40) Est Creatinine Clear Calc Drug Dose 111.8 ml/min Estimated GFR () 113.3 Estimated GFR (Non- 97.8 BUN/Creatinine Ratio 14.6 (10-20) Random Glucose 141 mg/dl (70-99) Calcium Level 8.6 mg/dl (8.5-10.1) Total Bilirubin 0.3 mg/dl (0.2-1) Aspartate Amino Transferase (AST) 28 U/L (15-37) Alanine Aminotransferase (ALT) 19 U/L (12-78) Alkaline Phosphatase 82 U/L (45-117) Total Protein 6.9 gm/dl (6.4-8.2) Albumin 2.7 gm/dl (3.4-5.0) Globulin 4.2 gm/dl (2.5-4.0) Albumin/Globulin Ratio 0.6 (0.9-2) Thyroid Stimulating Hormone (TSH) 0.601 uIu/ml (0.300-4.500) POC Prothrombin Time INR 2.2 (0.9-1.1) Test 08/17/16 14:05 08/19/16 14:15 White Blood Count 8.21 K/uL (4.8-10.8) Red Blood Count 4.32 M/uL (4.7-6.1) Hemoglobin 10.7 g/dL (14.0-18.0) Hematocrit 35.8 % (42-52) Mean Corpuscular Volume 82.9 fL (80-100) Mean Corpuscular Hemoglobin 24.8 pg (25-34) Mean Corpuscular Hemoglobin Concent 29.9 g/dl (32-36) Platelet Count 410 K/uL (130-400) Mean Platelet Volume 7.8 fL (7.4-10.4) Neutrophils (%) (Auto) 80.2 % Lymphocytes (%) (Auto) 10.1 % Monocytes (%) (Auto) 8.2 % Eosinophils (%) (Auto) 0.7 % Basophils (%) (Auto) 0.4 % Neutrophils # (Auto) 6.59 K/uL (1.4-6.5) Lymphocytes # (Auto) 0.83 K/uL (1.2-3.4) Monocytes # (Auto) 0.67 K/uL (0.11-0.59) Eosinophils # (Auto) 0.06 K/uL (0-0.5) Basophils # (Auto) 0.03 K/uL (0-0.2) RDW Standard Deviation 52.0 fL (36.4-46.3) RDW Coefficient of Variation 17.2 % (11.5-14.5) Immature Granulocyte % (Auto) 0.4 % Immature Granulocyte # (Auto) 0.03 K/uL (0.00-0.02) Sodium Level 134 mmol/L (136-145) Potassium Level 4.0 mmol/L (3.5-5.1) Chloride Level 100 mmol/L (98-107) Carbon Dioxide Level 28 mmol/L (21-32) Anion Gap 6.0 mmol/L (3-11) Blood Urea Nitrogen 12 mg/dl (7-18) Creatinine 0.63 mg/dl (0.60-1.40) Est Creatinine Clear Calc Drug Dose 126.0 ml/min Estimated GFR () 119.0 Estimated GFR (Non- 102.7 BUN/Creatinine Ratio 19.2 (10-20) Random Glucose 112 mg/dl (70-99) Calcium Level 8.4 mg/dl (8.5-10.1) Total Bilirubin 0.3 mg/dl (0.2-1) Aspartate Amino Transferase (AST) 40 U/L (15-37) Alanine Aminotransferase (ALT) 18 U/L (12-78) Alkaline Phosphatase 91 U/L (45-117) Total Protein 6.9 gm/dl (6.4-8.2) Albumin 2.7 gm/dl (3.4-5.0) Globulin 4.2 gm/dl (2.5-4.0) Albumin/Globulin Ratio 0.6 (0.9-2) Thyroid Stimulating Hormone (TSH) 0.720 uIu/ml (0.300-4.500) POC Prothrombin Time INR 2.8 (0.9-1.1) (Shadia Allison PA-C) Assessment & Plan Plan: The patient was also seen today by Dr. Fernandez. He'll continue follow-up with Dr. Oquendo and his primary care physician. We discussed that the symptoms of decreased hearing and fatigue should hopefully improve the further away he gets from radiation. He is going to check into the prescription for Namenda. It has been recommended that he take it for a total 6 months. We will plan a recheck MRI of the brain in 3 months. We will see him in follow-up after the MRI. He may call if he has any questions or concerns in the interim. (Shadia Allison PA-C) I agree with note created by Shadia Allison PA-C. I reviewed the patient's chart and information with her. I have examined and evaluated the patient. I reviewed relevant clinical information and answered the patient's and/or family' s questions. (Veeral. Fernandez MD) Total Time In Follow-Up I spent 20 minutes speaking to the patient performing examination. I spent 15 minutes reviewing information completing this note. (Shadia Allison PA-C) I spent 15 minutes examining and counseling the patient. (Veeral. Fernandez MD) Copy To Alessandro Oquendo D.O.; Joel Robin M.D.
== END | disposition home or self-care (01) ==
LOC: C.ONC 12:43
PROVIDERS: ATTEND Physician Assistant Medical
DX: Z08 Encounter for follow-up examination after completed treatment for malignant neoplasm (principal); Z92.3 Personal history of irradiation; Z85.118 Personal history of other malignant neoplasm of bronchus and lung

== ENCOUNTER → 2016-09-15 | Outpatient (CLI) | payer BC ==
[~2016-09-15] MED LIST changes: -ACET-1256 PO; +OPTIRAY 320 IV PRN; -PANT40TA PO
--- NOTE | 2016-09-15 16:09 | DIAGNOSTIC IMAGING REPORT ---
(CHEST) THORAX WITH CLINICAL HISTORY: 66 years-old Male presenting with LUNG CA; COUGHING BLOOD. TECHNIQUE: Multidetector CT imaging of the chest was performed after the administration of intravenous contrast. IV contrast: 120 mL of Optiray 320. A dose lowering technique was used consistent with the principles of ALARA (as low as reasonably achievable). COMPARISON: 06/09/2016. CT DOSE (mGy.cm): The estimated cumulative dose is 578.63 mGy.cm. FINDINGS: Applications Tester topogram: Multiple pulmonary masses noted. On soft tissue windows, left subclavian Mediport terminates in the superior cavoatrial junction. Interval enlargement of prevascular pathologically enlarged lymph node, measuring up to 12 mm in the short axis. Additional new enlarged mediastinal lymph nodes in the right paratracheal and subcarinal regions. Normal aorta. Normal heart size. No gross evidence of pulmonary embolism on the current exam. No pericardial or pleural effusion. Multiple hepatic masses dramatically increased from prior, consistent with metastatic disease. Left adrenal nodule enlargement. Upper abdominal lymphadenopathy. On lung windows, left upper lobe mass significantly enlarged from prior exam. This encases the left upper lobe bronchus and pulmonary artery with resultant occlusion of the bronchus and arterial narrowing. Multifocal satellite nodules in the left upper lobe. Additionally metastatic nodules noted in the right lung, new from prior. On bone windows, multilevel degenerative changes of the thoracic spine. IMPRESSION: 1. Significant interval progression of the primary left upper lobe mass with satellite metastatic nodularity in the left upper lobe and new metastatic disease throughout the right lung. 2. Significant interval increase in mediastinal lymphadenopathy. 3. Significant interval increase in size and number of hepatic metastatic lesions and increased size of left adrenal metastasis and upper abdominal lymphadenopathy. Electronically signed by: Valente Kahn M.D. 09/15/2016 4:08 PM Dictated Date/Time: 09/15/2016 4:02 PM
--- NOTE | 2016-09-15 17:41 | DIAGNOSTIC IMAGING REPORT ---
CT OF THE ABDOMEN AND PELVIS WITH CONTRAST CLINICAL HISTORY: LUNG CA; COUGHING BLOOD COMPARISON STUDY: CT of the abdomen and pelvis December 11, 2015 and PET/CT October 13, [address] June 09, 2016. TECHNIQUE: Following IV administration of 120 mL of Optiray-320, axial images of the abdomen and pelvis were obtained from the lung bases to the proximal femurs. Images were reviewed in the axial, sagittal, and coronal planes. IV contrast was administered without complication. A dose lowering technique was utilized adhering to the principles of ALARA. Oral contrast was administered. FINDINGS: The chest will be reported separately. However, the left upper lobe mass has significantly increased in size. Numerous satellite lesions have increased as well. Numerous hepatic metastases have significantly increased in size since CT of June 09, 2016. An index segment 5/4 lesion measures 12.3 x 7.1 cm. It previously measured 4.1 x 2.5 cm on exam of June 09, 2016. A caudate lobe lesion measures 6.2 cm. It previously measured 1.4 cm. Left adrenal metastasis has increased in size. There is a 1.7 cm hypodense left adrenal lesion as well as an additional 2.4 cm enhancing left adrenal lesion. The hypodense lesion has increased in size. The spleen right adrenal gland and pancreas are unremarkable. There is a 4 mm right renal calculus. There are no ureteral calculi. There is no hydronephrosis. Images of the pelvis are degraded by streak artifact from a right acetabular internal fixation for a suspected pathologic fracture as well as a right hip arthroplasty. The fracture has been largely healed. A fracture line within the medial column of the right acetabulum remains evident. No additional pathologic fractures are present. Prostate is markedly enlarged. There is no bowel obstruction. Upper abdominal lymph nodes have increased in size since prior exam. An index portacaval lymph node measures 3.8 x 1.7 cm. There is no pneumatosis, free air or portal venous gas. Right hip replacement is noted. IMPRESSION: 1. Significant progression of metastatic disease, including increase in size and number of widespread hepatic metastases and interval development of upper abdominal lymphadenopathy. Mild increase in size of a left adrenal metastasis. 2. Interval enlargement of the left upper lobe pulmonary mass and multiple satellite lesions consistent with progression of disease. 3. Status post total right hip arthroplasty and internal fixation of a suspected right acetabular pathologic fracture. Fracture partially healed, as described above. Electronically signed by: Zia Stern M.D. 09/15/2016 5:39 PM Dictated Date/Time: 09/15/2016 4:13 PM
== END | disposition home or self-care (01) ==
LOC: C.CTS 15:32
PROVIDERS: ATTEND Internal Medicine Hematology & Oncology
DX: C34.12 Malignant neoplasm of upper lobe, left bronchus or lung (principal); C78.7 Secondary malignant neoplasm of liver and intrahepatic bile duct; C79.70 Secondary malignant neoplasm of unspecified adrenal gland; R59.0 Localized enlarged lymph nodes; Z96.641 Presence of right artificial hip joint

== ENCOUNTER → 2016-09-30 | Outpatient (CLI) | payer BC ==
[~2016-09-30] MED LIST changes: -OPTIRAY 320 IV PRN
== END | disposition home or self-care (01) ==
LOC: C.LAB1850 16:40
PROVIDERS: ATTEND Physician Assistant
DX: R05 Cough (principal)

== ENCOUNTER → 2016-10-05 | Outpatient (CLI) | payer BC ==
[~2016-10-05] MED LIST changes: -DIPH25CA65 PO; -LEVO1TAB33 PO; -PRENTAB26 PO
[2016-10-05 15:45] LABS: PROTHROMBIN TIME (PATIENT) > 100.0 SECONDS (9.0-12.0)
[2016-10-05 18:19] LABS: INR > 8.0 (0.9-1.1)
== END | disposition home or self-care (01) ==
LOC: C.LAB 14:10
PROVIDERS: ATTEND Pathology Blood Banking & Transfusion Medicine
DX: Z86.711 Personal history of pulmonary embolism (principal); Z51.81 Encounter for therapeutic drug level monitoring; Z79.01 Long term (current) use of anticoagulants; I26.99 Other pulmonary embolism without acute cor pulmonale